=== PATIENT | female | born 1955 | race Caucasian/White ===

== ENCOUNTER → 2019-08-28 15:15 | Outpatient (BNVA) | payer BC, SELFPAY | PROVIDERS: Family Provider Family Medicine; PCP Nurse Practitioner Family; Visit Provider Family Medicine | DX: E78.5 Hyperlipidemia, unspecified (principal); I10 Essential (primary) hypertension; E78.2 Mixed hyperlipidemia; N95.9 Unspecified menopausal and perimenopausal disorder; F41.9 Anxiety disorder, unspecified | CPT/HCPCS: 80053; 80061; 84443; 85025 ==

== ENCOUNTER → 2019-09-04 11:30 | Outpatient (BNVA) | payer BC, SELFPAY | PROVIDERS: Family Provider Family Medicine; PCP Nurse Practitioner Family; Visit Provider Family Medicine | DX: E03.9 Hypothyroidism, unspecified (principal) | CPT/HCPCS: 84439; 84443 ==

== ENCOUNTER → 2020-07-23 11:07 | Outpatient (BNVA) | payer BC, SELFPAY | PROVIDERS: Family Provider Family Medicine; PCP Nurse Practitioner Family; Visit Provider Nurse Practitioner Family | DX: R30.0 Dysuria (principal); N30.00 Acute cystitis without hematuria | CPT/HCPCS: 81000; 81003; 87077; 87086; 87184 ==

== ENCOUNTER → 2020-08-17 10:16 | Outpatient (BNVA) | payer BC, SELFPAY | PROVIDERS: Family Provider Family Medicine; PCP Nurse Practitioner Family; Visit Provider Family Medicine | DX: F41.9 Anxiety disorder, unspecified (principal); I10 Essential (primary) hypertension; E78.2 Mixed hyperlipidemia; N95.9 Unspecified menopausal and perimenopausal disorder; F32.1 Major depressive disorder, single episode, moderate | CPT/HCPCS: 80053; 80061; 84443; 85025 ==

== ENCOUNTER → 2021-04-22 16:22 | Outpatient (BNVA) | payer BC, SELFPAY | PROVIDERS: Family Provider Family Medicine; PCP Family Medicine; Referring Provider Family Medicine; Visit Provider Family Medicine | DX: R60.9 Edema, unspecified (principal); I10 Essential (primary) hypertension; E78.5 Hyperlipidemia, unspecified; F41.9 Anxiety disorder, unspecified | CPT/HCPCS: 80053; 80061; 84443; 85025 ==

== ENCOUNTER 2021-04-27 11:09 | Outpatient (CLI) | payer BC, SELFPAY ==
--- NOTE | 2021-04-27 11:30 | MM_ITS ---
WS: [id number] BILATERAL SCREENING DIGITAL MAMMOGRAM WITH CAD HISTORY: Screening exam. COMPARISON: 02/02/2017 Bilateral CC and MLO views submitted. Computer aided detection analyzed. Breast composition: The breasts are heterogeneously dense, which may obscure small masses. No suspici ous masses, microcalcifications or architectural distortion. There are numerous asymmetries within ea ch breast and a prior biopsy clip in the LEFT breast near 6:00. 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 MM/[place] [id number] IMPRESSION: BI-RADS: 2-Benign FOLLOW UP: 1 Year Follow-up
== END 2021-04-27 11:10 | disposition home or self-care (01) ==
LOC: RADSHAW 11:12
PROVIDERS: PCP Family Medicine; Visit Provider Family Medicine
DX: Z12.31 Encounter for screening mammogram for malignant neoplasm of breast (principal)
CPT/HCPCS: 77067

== ENCOUNTER → 2021-08-03 09:50 | Outpatient (BNVA) | payer BC, SELFPAY | PROVIDERS: PCP Family Medicine; Visit Provider Family Medicine | DX: E78.5 Hyperlipidemia, unspecified (principal); R79.89 Other specified abnormal findings of blood chemistry | CPT/HCPCS: 80053; 80061; 84443; 85025 ==

== ENCOUNTER → 2021-10-25 08:50 | Outpatient (BNVA) | payer BC, SELFPAY | PROVIDERS: PCP Family Medicine; Visit Provider Family Medicine | DX: E78.5 Hyperlipidemia, unspecified (principal); I10 Essential (primary) hypertension; Z00.00 Encounter for general adult medical examination without abnormal findings | CPT/HCPCS: 80053; 80061; 84443; 85025 ==

== ENCOUNTER → 2021-12-22 18:02 | Outpatient (BNVA) | payer MEDICARE, BC, SELFPAY | PROVIDERS: PCP Family Medicine; Visit Provider Family Medicine | DX: S30.860A Insect bite (nonvenomous) of lower back and pelvis, initial encounter (principal); W57.XXXA Bitten or stung by nonvenomous insect and other nonvenomous arthropods, initial encounter | CPT/HCPCS: 86618; 86666; 86757 ==

== ENCOUNTER → 2022-03-17 09:47 | Outpatient (BNVA) | payer MEDICARE, BC, SELFPAY | PROVIDERS: PCP Family Medicine; Visit Provider Surgery | DX: Z12.11 Encounter for screening for malignant neoplasm of colon (principal) | CPT/HCPCS: 99024 ==

== ENCOUNTER → 2022-05-23 10:20 | Outpatient (BNVA) | payer MEDICARE, BC, SELFPAY | PROVIDERS: PCP Family Medicine; Visit Provider Family Medicine | DX: R35.0 Frequency of micturition (principal); I10 Essential (primary) hypertension; N95.9 Unspecified menopausal and perimenopausal disorder; N39.0 Urinary tract infection, site not specified; R60.9 Edema, unspecified; E78.5 Hyperlipidemia, unspecified; F41.9 Anxiety disorder, unspecified | CPT/HCPCS: 80053; 80061; 81000; 84443; 85025 ==

== ENCOUNTER 2022-06-01 06:02 | Day surgery (SDC) | payer MEDICARE, BC, SELFPAY ==
[2022-05-30 13:57] VITALS: BMI 25.7
--- NOTE | 2022-06-01 06:53 | ANES.PREANE2 ---
Pre-Anesthetic Assessment Height/Weight: Height 1.65 m Weight 70.307 kg Operation Date: 06/01/22 07:30 Proposed Procedures p Colonoscopy 18804,Z12.11(Not Applicable) - Abimael Avery DO Familial anesthetic complications: none Was Beta Janet taken within 24 hours: Yes Was Clonidine taken within 24 hours: N/A Social No alcohol and No tobacco Exam alert, oriented x 3, clear to auscultation bilaterally and regular rate & rhythm Airway Submandibular: within normal limits Cervical ROM: within normal limits Mallampati: Class II Dentition: full Pulmonary None reported CV/HEM Arrythmia and Hypertension Urinary Tract Infection (recent on end of antibiotics) Hepatic None reported GI Gastroesophageal Reflux Disease (occasional with certaian foods but controlled with tums) Metabolic Hyperlipidemia [facility] [place] None reported Neuropsych Anxiety and Headache Anesthetic Plan ASA status: 2 Anesthesia: MAC Medications/Allergies Home Medications Medication Instructions Recorded Confirmed Last Taken Type nitroglycerin 0.4 mg sublingual 0.4 mg sublingual Q5M PRN Chest 08/28/19 06/01/22 Unknown History tablet (Nitrostat) Pain peg 3350-electrolytes 236 240 ml PO Q10M #4,000 mL 03/17/22 06/01/22 05/31/22 Rx gram-22.74 gram-6.74 gram-5.86 gram solution (Golytely) alprazolam 1 mg tablet (Xanax) 1 mg PO TID PRN anxiety #270 tabs 05/23/22 06/01/22 05/31/22 Rx atenolol 50 mg tablet 50 mg PO DAILY #90 tabs 05/23/22 06/01/22 06/01/22 Rx bumetanide 2 mg tablet 2 mg PO BID #180 tabs 05/23/22 06/01/22 05/31/22 Rx estradiol 2 mg tablet (Estrace) 2 mg PO DAILY #90 tabs 05/23/22 06/01/22 05/31/22 Rx fenofibrate 160 mg tablet 160 mg PO DAILY #90 tabs 05/23/22 06/01/22 05/31/22 Rx potassium chloride 10 mEq 10 meq PO DAILY #90 caps 05/23/22 06/01/22 05/31/22 Rx capsule,extended release rosuvastatin 40 mg tablet (Crestor) 40 mg PO DAILY #90 tabs 05/23/22 06/01/22 05/31/22 Rx Allergies Allergy/AdvReac Type Severity Reaction Status Date / Time latex Allergy hives Verified 06/01/22 06:31 [facility] Anesthesia Medical History Anxiety Dyslipidemia Hypertension Social History Smoking and tobacco status: never smoked Alcohol intake: never Data Anesthesia Cardiac Studies: No Data to Display
[2022-06-01 06:55] VITALS: BP 129/77; PULSE 65; RESP 18; TEMP 36.3; O2SAT 95
[2022-06-01] MEDS: sodium chloride 0.9% 1,000 ML 30 ML IV (07:39)
--- NOTE | 2022-06-01 07:41 | PM.HP ---
Providers/Chief Complaint Primary Care Provider: Carlene Alex MD Chief Complaint: encounter for screening for malignant neoplasm History of Present Illness Lonny Baig is a 66 year old female here for a screening colonoscopy Medications/Allergies Home Medications Medication Instructions Recorded Confirmed Last Taken Type nitroglycerin 0.4 mg sublingual 0.4 mg sublingual Q5M PRN Chest 08/28/19 06/01/22 Unknown History tablet (Nitrostat) Pain peg 3350-electrolytes 236 240 ml PO Q10M #4,000 mL 03/17/22 06/01/22 05/31/22 Rx gram-22.74 gram-6.74 gram-5.86 gram solution (Golytely) alprazolam 1 mg tablet (Xanax) 1 mg PO TID PRN anxiety #270 tabs 05/23/22 06/01/22 05/31/22 Rx atenolol 50 mg tablet 50 mg PO DAILY #90 tabs 05/23/22 06/01/22 06/01/22 Rx bumetanide 2 mg tablet 2 mg PO BID #180 tabs 05/23/22 06/01/22 05/31/22 Rx estradiol 2 mg tablet (Estrace) 2 mg PO DAILY #90 tabs 05/23/22 06/01/22 05/31/22 Rx fenofibrate 160 mg tablet 160 mg PO DAILY #90 tabs 05/23/22 06/01/22 05/31/22 Rx potassium chloride 10 mEq 10 meq PO DAILY #90 caps 05/23/22 06/01/22 05/31/22 Rx capsule,extended release rosuvastatin 40 mg tablet (Crestor) 40 mg PO DAILY #90 tabs 05/23/22 06/01/22 05/31/22 Rx Allergies Allergy/AdvReac Type Severity Reaction Status Date / Time latex Allergy hives Verified 06/01/22 06:31 PFSH Acute PFSH: Medical History Anxiety Dyslipidemia Hypertension Social History Smoking and tobacco status: never smoked Alcohol intake: never Vitals/I&O/Wt Last Vital Signs Temp 97.3 F L 06/01/22 06:55 Pulse 65 06/01/22 06:55 Resp 18 06/01/22 06:55 BP 129/77 06/01/22 06:55 Pulse Ox 95 06/01/22 06:55 Weight last 48 hrs Weight 155 lb A&P Assessment and plan (1) Colon cancer screening: Plan Colonoscopy The risks and benefits of the procedure, including bleeding, infection, intestinal perforation requiring surgery, missed lesion, or explained to the patient. She is understanding of the risks and wishes to proceed. Attestations Medical Necessity Statement*: Home Coding Level of Care Code Acute Pricing Manager for Chg Fwd Diagnoses Colon cancer screening Z12.11
[2022-06-01 08:00] VITALS: BP 119/66; PULSE 65; RESP 16; TEMP 36.1; O2SAT 95
--- NOTE | 2022-06-01 08:05 | ANE.PACU2 ---
Inpatient post-anesthesia follow up: Airway intact: Yes Vital signs: Temperature 97.0 F Pulse Rate 65 Respiratory Rate 16 Blood Pressure 119/66 Pulse Oximetry 95 Oxygen Delivery Me thod Nasal Cannula Oxygen Flow Rate 2 Fraction of Inspir ed Oxygen Hydration adequate: Yes Nausea and vomiting: No Pain level: 1 Mental status: Baseline
[2022-06-01 08:10] VITALS: BP 118/71; PULSE 63; RESP 16; O2SAT 95
[2022-06-01] MEDS: ondansetron 2 mg/ML SDV 2 mL 4 MG IVP ×2 (08:13→08:28)
--- NOTE | 2022-06-01 08:34 | ANE.PACU2 ---
Inpatient post-anesthesia follow up: Airway intact: Yes Vital signs: Temperature 97.0 F Pulse Rate 63 Respiratory Rate 16 Blood Pressure 118/71 Pulse Oximetry 95 Oxygen Delivery Me thod Nasal Cannula Oxygen Flow Rate 2 Fraction of Inspir ed Oxygen Hydration adequate: Yes Nausea and vomiting: No Pain level: 1 Mental status: Baseline
== END 2022-06-01 08:57 | disposition home or self-care (01) ==
PROVIDERS: PCP Family Medicine; Visit Provider Surgery
PROC: 0DJD8ZZ Inspection of Lower Intestinal Tract, Via Natural or Artificial Opening Endoscopic (ICD-10-PCS; CPT 45378; principal; 2022-06-01 07:30)
DX: Z12.11 Encounter for screening for malignant neoplasm of colon (principal); F41.9 Anxiety disorder, unspecified; E78.5 Hyperlipidemia, unspecified; I10 Essential (primary) hypertension; K21.9 Gastro-esophageal reflux disease without esophagitis
CPT/HCPCS: 96374; G0121; J2405; J2704; J7030

== ENCOUNTER 2022-06-03 09:50 | Outpatient (CLI) | payer MEDICARE, BC, SELFPAY ==
--- NOTE | 2022-06-03 09:57 | MM_ITS ---
WS: [id number] BILATERAL SCREENING DIGITAL TOMOSYNTHESIS MAMMOGRAM WITH CAD HISTORY: SCREENING COMPARISON: 04/27/2021 and 02/20/2017 and 02/02/2017 Bilateral CC and MLO views with tomosynthesis and synthetic mammography submitted. Computer aided det ection analyzed. Breast composition: The breasts are heterogeneously dense, which may obscure small masses. No suspici ous masses, microcalcifications or architectural distortion. Bilateral breast asymmetries are stable. MM/[place] [id number] IMPRESSION: BI-RADS: 2-Benign FOLLOW UP: 1 Year Follow-up
== END 2022-06-03 09:51 | disposition home or self-care (01) ==
LOC: RAD 09:53
PROVIDERS: PCP Family Medicine; Visit Provider Family Medicine
DX: Z12.31 Encounter for screening mammogram for malignant neoplasm of breast (principal)
CPT/HCPCS: 77063; 77067

== ENCOUNTER → 2022-08-11 14:30 | Outpatient (BNVA) | payer MEDICARE, BC, SELFPAY | PROVIDERS: PCP Family Medicine; Visit Provider Family Medicine | DX: N39.0 Urinary tract infection, site not specified (principal); M25.50 Pain in unspecified joint | CPT/HCPCS: 81000; 81003; 84550; 85651; 86431 ==

== ENCOUNTER → 2023-01-04 11:27 | Outpatient (BNVA) | payer MEDICARE, BC, SELFPAY | PROVIDERS: PCP Family Medicine; Visit Provider Nurse Practitioner Family | DX: N39.0 Urinary tract infection, site not specified (principal); E78.5 Hyperlipidemia, unspecified | CPT/HCPCS: 80053; 80061; 84443 ==

== ENCOUNTER 2023-02-14 14:45 | Outpatient (CLI) | payer MEDICARE, BC, SELFPAY ==
--- NOTE | 2023-02-14 15:00 | US_ITS ---
WS: [id number] RIGHT UPPER QUADRANT ULTRASOUND HISTORY: R10.11 - Right upper quadrant pain COMPARISON: None available. Liver: 16.8 cm in length. Normal size liver and echogenicity. No bile duct dilatation or mass. Portal Vein: Normal hepatopetal flow with monophasic waveform. Gallbladder: Normally distended gallbladder with no stones or wall thickening. CBD: 0.3 cm Pancreas: Normal size and echogenicity. Right kidney: 11.9 cm in length. Normal size and echogenicity. No hydronephrosis or mass. Aorta and IVC: Unremarkable abdominal aorta and IVC. No ascites. US/US gall bladder [id number] IMPRESSION: Normal RIGHT upper quadrant ultrasound.
== END 2023-02-14 14:46 | disposition home or self-care (01) ==
PROVIDERS: PCP Family Medicine; Visit Provider Nurse Practitioner Family
DX: R10.11 Right upper quadrant pain (principal)
CPT/HCPCS: 76705

== ENCOUNTER → 2023-04-12 12:08 | Outpatient (BNVA) | payer MEDICARE, BC, SELFPAY | PROVIDERS: PCP Family Medicine; Visit Provider Family Medicine | DX: R35.0 Frequency of micturition (principal); N39.0 Urinary tract infection, site not specified | CPT/HCPCS: 81003; 87077; 87086; 87184 ==

== ENCOUNTER → 2023-11-07 11:36 | Outpatient (BNVA) | payer MEDICARE, BC, SELFPAY | PROVIDERS: PCP Family Medicine; Visit Provider Family Medicine | DX: R30.0 Dysuria (principal); L98.419 Non-pressure chronic ulcer of buttock with unspecified severity | CPT/HCPCS: 81000; 86695; 86696; 87077; 87086; 87184 ==

== ENCOUNTER → 2024-02-13 14:44 | Outpatient (BNVA) | payer MEDICARE, BC, SELFPAY | PROVIDERS: PCP Family Medicine; Visit Provider Family Medicine | DX: R30.0 Dysuria (principal) | CPT/HCPCS: 81003 ==

== ENCOUNTER → 2024-05-13 08:23 | Outpatient (BNVA) | payer MEDICARE, BC, SELFPAY | PROVIDERS: PCP Nurse Practitioner Family; Visit Provider Podiatrist Foot & Ankle Surgery | DX: M79.671 Pain in right foot (principal); Q66.221 Congenital metatarsus adductus, right foot; I10 Essential (primary) hypertension | CPT/HCPCS: 73630; 99204 ==

== ENCOUNTER 2024-05-24 05:35 | Day surgery (SDC) | payer MEDICARE, BC, SELFPAY ==
[2024-05-24] VITALS (8 sets, daily range): BP systolic 109–130; BP diastolic 49–79; PULSE 61–69; RESP 16–20; TEMP 36.4–37.1; O2SAT 94–97; BMI 25.7
[2024-05-24] MEDS: CELEcoxib 200 mg Capsule 400 MG PO (06:14)
[2024-05-24] MEDS: gabapentin 300 mg Capsule PO (06:14)
[2024-05-24] MEDS: sodium chloride 0.9% 1,000 ML 30 ML IV (06:15)
--- NOTE | 2024-05-24 06:44 | ANES.PREANE2 ---
Pre-Anesthetic Assessment Height/Weight: Height 1.65 m Weight 70.307 kg Temp Pulse Resp BP Pulse Ox O2 Del Method 97.6 F 64 18 122/79 96 Room Air 05/24/24 06:04 05/24/24 06:04 05/24/24 06:04 05/24/24 06:04 05/24/24 06:04 05/24/24 06:04 Preop Diagnosis: Right bunion Operation Date: 05/24/24 07:00 Proposed Procedures p Bunionectomy Dion(Right) - Dong Crespo DPM s Metatarsophalangeal Joint Fusion(Right) - Dong Crespo DPM Familial anesthetic complications: None Was Beta Janet taken within 24 hours: Yes Was Clonidine taken within 24 hours: N/A Last intake: Intake Last Liquid Date 05/23/24 Last Liquid Time 19:00 Last Solid Date 05/23/24 Last Solid Time 15:00 Social No alcohol and No tobacco Exam alert, oriented x 3, clear to auscultation bilaterally and regular rate & rhythm Airway Mallampati: Class II Dentition: other (crowns, bridges 2 on top 1 on bottom, fillings) CV/HEM Hypertension GI Gastroesophageal Reflux Disease Metabolic Hyperlipidemia Anesthetic Plan ASA status: 2 Anesthesia: MAC Risk of > 500 ml blood loss (7ml/kg in children): No Medications/Allergies Home Medications Medication Instructions Recorded Confirmed Last Taken Type nitroglycerin 0.4 mg sublingual 0.4 mg sublingual Q5M PRN Chest 08/28/19 05/24/24 Unknown History tablet (Nitrostat) Pain hydrocortisone 2.5 % topical cream 1 applic LA QID 10 days #30 grams 08/11/22 05/24/24 Unknown Rx with perineal applicator (Anusol-HC) potassium chloride 10 mEq See Rx Instructions .Route 11/07/23 05/24/24 05/23/24 Rx capsule,extended release .COMPLEX #90 caps atenolol 50 mg tablet 50 mg PO DAILY #90 tabs 04/30/24 05/24/24 05/23/24 Rx bumetanide 2 mg tablet 2 mg PO TID 90 days #270 tabs 04/30/24 05/24/24 05/23/24 Rx estradiol 2 mg tablet (Estrace) 2 mg PO DAILY #90 tabs 04/30/24 05/24/24 05/23/24 Rx fenofibrate 160 mg tablet See Rx Instructions .Route 04/30/24 05/24/24 05/23/24 Rx .COMPLEX #90 tabs methenamine hippurate 1 gram tablet See Rx Instructions .Route 04/30/24 05/24/24 05/23/24 Rx .COMPLEX #180 tabs pantoprazole 40 mg tablet,delayed 40 mg PO DAILY #90 tabs 04/30/24 05/24/24 Unknown Rx release (Protonix) rosuvastatin 40 mg tablet See Rx Instructions .Route 04/30/24 05/24/24 05/23/24 Rx .COMPLEX #90 tabs spironolactone 50 mg tablet 50 mg PO DAILY #90 tabs 04/30/24 05/24/24 05/23/24 Rx valacyclovir 1 gram tablet 1,000 mg PO DAILY #30 tabs 04/30/24 05/24/24 05/23/24 Rx (Valtrex) hydrocodone 10 mg-acetaminophen 1 tab PO Q6H PRN pain 7 days #28 05/24/24 Unknown Rx 325 mg tablet tabs Allergies Allergy/AdvReac Type Severity Reaction Status Date / Time latex Allergy hives Verified 05/24/24 06:13 Current Medications Generic Name Dose Route Start Last Admin Trade Name Freq PRN Reason Stop Dose Admin Sodium Chloride 1,000 mls @ 30 mls/hr 05/24/24 06:00 05/24/24 06:15 Sodium Chloride 0.9% IV 05/25/24 05:59 30 mls/hr .Q24H DEVON Administration PFSH Anesthesia Medical History Hypertension Anxiety Dyslipidemia Social History Smoking and tobacco/nicotine status: never used tobacco/nicotine Alcohol intake: never Substance/Drug Use: never Data Anesthesia Cardiac Studies: No Data to Display
--- NOTE | 2024-05-24 06:45 | W.PM.OPSUD ---
Surgery/Procedure H&P Update DATE OF PROCEDURE: May 24, 2024 DATE H&P PERFORMED: 05/13/24 H&P UPDATE INFORMATION: I have reviewed H&P completed within last 30 days, I have examined patient prior to procedure, No changes to prior documentation and H&P is in [facility] [facility]MR on date indicated PREOP DIAGNOSIS: Right bunion PLANNED PROCEDURE: Operation Date: 05/24/24 07:00 Proposed Procedures p Bunionectomy Dion(Right) - Dong Crespo DPM s Metatarsophalangeal Joint Fusion(Right) - Dong Crespo DPM
[2024-05-24] MEDS: ceFAZolin 2,000 mg SDV 2000 MG IVP (06:59)
[2024-05-24] MEDS: BUPivacaine 0.5% INJ 10 mL 20 ML INJECTION (07:24)
[2024-05-24] MEDS: BUPivacaine liposome 13.3 mg/mL SDV 20 mL 266 MG INJECTION (07:24)
--- NOTE | 2024-05-24 07:55 | PM.OP ---
Operative Report Date of procedure: May 24, 2024 Pre-op diagnosis: Right foot pain M79.671, Bunion, right foot M21.611 Post-op diagnosis: Right foot pain M79.671, Bunion, right foot M21.611 Procedure done: Modified Dion bunionectomy right foot. CPT code 18645 Implants: Ridott 3.0 mm headed short thread cannulated screw by 18 mm in length, 3-0 Vicryl, 4-0 Vicryl, 4 nylon Specimens removed/disposition: No specimens Pathology: No pathology Surgeon: Dong Crespo DPM Senior Solutions Engineer: Yuriy Anderson Estimated blood loss: 2 milliliters 26 minutes IV fluids: See intraoperative documentation Urine output: None Complications: No complications Brief History: Hallux noted to be an abducted position. Tibial sesamoid position: 4 degreesrrrrr. 1 ? 2 IM angle is 15?. True first and metatarsal angle 20 degrees. Hallux abductus angle is 35?. Metatarsal adductus angle is 5? Sieberg index of 1 mm Erosive changes at the medial aspect first metatarsal head with squaring off of the first metatarsal and mild subchondral sclerosis at the first metatarsal head all right foot. Painful right bunion unresponsive to conservative treatment with wide accommodative toebox, padding and spacing activity modifications, stretching, supportive insole and anti-inflammatories would like to discuss surgical options. Discussed joint sparing as well as joint destructive options. Would like to keep both open and use best judgment intraoperatively. Discussed Dion Carlos versus first MPJ fusion. I reviewed at length with the patient, the risks, potential complications, benefits, alternatives, expectations, and typical outcomes associated with the surgery. The risks and potential complications were explained in detail, including but not limited to infection, wound dehiscence or soft tissue complications, bleeding and hematoma, chronic edema, neuritis or nerve damage producing numbness or chronic pain, CRPS, failure to relieve pain or worsening pain, thick / painful / unsightly scar, limited motion / stiffness, malposition, delayed union, malunion, or nonunion, fracture, reaction to implants, anesthetic complications, venous thromboembolism, and deformity recurrence. I discussed the notion of no regrets with the patient as it pertains to complications and outcomes. The patient seemed to understand the nature of the proposed care and required convalescence. They asked appropriate questions, answered to their satisfaction. They are aware no guarantees can be made as to a satisfactory outcome and they understand there may be other possible unforeseen complications or outcomes not listed here that will be treated accordingly if they arise. There were no written or implied guarantees given to the patient. They gave informed consent to proceed. Procedure: Under mild sedation the patient was brought to the operating room and remained on the gurney in supine position. A timeout was performed. Anesthesia was then administered by the anesthesia service. Local anesthesia was injected by myself consisting of 20 cc of 0.25% Marcaine plain in a right male block fashion with an additional 20 cc of Exparel subcutaneously infiltrated proximal to the operative site. Well-padded pneumatic tourniquet applied to the right ankle. The right lower extremity was scrubbed, prepped and draped utilizing normal aseptic technique and the right foot and ankle were exanguinated with an Esmarch bandage, tourniquet was then inflated to 250 mmHg, this was well-padded ankle tourniquet right ankle. Attention was directed to the right first metatarsal phalangeal joint where dorsiflexion was appreciated to be approximately 45 degrees with osseous prominence and bunion deformity at the right foot. A incision was performed medial and parallel to the extensor hallucis longus tendon through skin with a #15 blade with dissection carried down through subcutaneous tissue to the layer periosteum utilizing accommodation of sharp and blunt technique. Care was taken to retract and preserve neurovascular and tendinous structures. All bleeders were ligated and cauterized as necessary. Capsular incision was performed in the head of the first metatarsal and base of the proximal phalanx were freed from their soft tissue and capsular attachments under direct visualization the first metatarsal was noted to be healthy without eburnation or cartilage loss, there was bossing dorsally with hypertrophy bony overgrowth at the head of the first metatarsal and to a lesser extent to the dorsal base of the proximal phalanx this was resected with sagittal saw and all rough edges smoothed with a hand rasp. The medial eminence was was prominent and overgrown was transected with a sagittal saw followed by placement of a K wire for an axis guide and a chevron osteotomy was carried out from medial to lateral with apex oriented distally and the head of the first metatarsal translated laterally and temporarily fixated with a Shannon wire. Utilizing standard AO technique a Ridott 3 mm headed screw was driven perpendicular to the osteotomy site with excellent bony apposition and compression noted and on the AP, oblique and lateral view the hardware did not violate joint surfaces. Temporary fixation was removed, medial remaining shelf was transected and all rough edges smoothed with a hand rasp, lateral release was performed and the first metatarsal plantar joint was reduced of his intermetatarsal angle and in proper alignment. Smooth range of motion of the first metatarsal phalangeal joint was appreciated intraoperatively with 60 degrees of dorsiflexion appreciated after modified bunionectomy was performed. The incision was irrigated with copious amounts of sterile skin solution and closed in a layered fashion. Capsule was reapproximated with 3-0 Vicryl, subcutaneous tissue with 4-0 Vicryl and skin with 4-0 nylon. Incision was dressed with Adaptic, sterile 4 x 4's, Kerlix and Fernie wrap followed by application of a cam boot to the right lower extremity. Tourniquet was then deflated and a prompt hyperemic response is noted to the distal digits of the right foot. Patient tolerated the procedure and anesthesia well and was transferred to the PACU with vital signs stable and vascular status intact. Following a period of postoperative monitoring to be discharged home without home care instructions and scheduled follow-up. Advised 81 mg aspirin to be taken once daily beginning the morning after surgery to help potentially reduce the risk of deep vein thrombosis for the next 4 to 6 weeks.
[2024-05-24] MEDS: HYDROcodone-acetaminophen 10-325 mg Tablet 1 TAB PO (08:21)
--- NOTE | 2024-05-24 08:50 | ANE.PACU2 ---
Inpatient post-anesthesia follow up: Airway intact: Yes Vital signs: Temperature 97.7 F Pulse Rate 61 Respiratory Rate 18 Blood Pressure 109/68 Pulse Oximetry 97 Oxygen Delivery Me thod Room Air Oxygen Flow Rate Fraction of Inspir ed Oxygen Hydration adequate: Yes Nausea and vomiting: No Pain level: 1 Mental status: Baseline
--- NOTE | 2024-05-24 14:22 | XR_ITS ---
WS: [id number] C-ARM RADIOGRAPHS RIGHT FOOT; 2 IMAGES HISTORY: OR PIC, BUNIECTOMY COMPARISON: None available. Intraoperative imaging during RIGHT foot bunionectomy. There is a screw overlying the first metatarsa l head. XR/XR foot RT 2V [id number] IMPRESSION: Intraoperative imaging during bunionectomy.
== END 2024-05-24 08:50 | disposition home or self-care (01) ==
PROVIDERS: PCP Nurse Practitioner Family; Visit Provider Podiatrist Foot & Ankle Surgery
PROC: (CPT 28296; principal; 2024-05-24 07:00)
PROC: (CPT 28750; 2024-05-24 07:00)
DX: M21.611 Bunion of right foot (principal); I10 Essential (primary) hypertension; K21.9 Gastro-esophageal reflux disease without esophagitis; E78.5 Hyperlipidemia, unspecified; F41.9 Anxiety disorder, unspecified
CPT/HCPCS: 28296; 73620; 76000; C1713; C9290; J0690; J2250; J2704; J3010; J3490; J7030

== ENCOUNTER → 2024-06-06 13:01 | Outpatient (BNVA) | payer MEDICARE, BC, SELFPAY | PROVIDERS: PCP Nurse Practitioner Family; Visit Provider Podiatrist Foot & Ankle Surgery | DX: Z98.890 Other specified postprocedural states (principal) | CPT/HCPCS: 73630; 99024 ==

== ENCOUNTER → 2024-07-03 13:15 | Outpatient (BNVA) | payer MEDICARE, BC, SELFPAY | PROVIDERS: PCP Nurse Practitioner Family; Visit Provider Podiatrist Foot & Ankle Surgery | DX: Z98.890 Other specified postprocedural states (principal) | CPT/HCPCS: 73630; 99024 ==

== ENCOUNTER → 2024-08-01 12:36 | Outpatient (BNVA) | payer MEDICARE, BC, SELFPAY | PROVIDERS: PCP Nurse Practitioner Family; Visit Provider Podiatrist Foot & Ankle Surgery | DX: Z98.890 Other specified postprocedural states (principal) | CPT/HCPCS: 73630; 99024 ==

== ENCOUNTER → 2024-11-06 10:31 | Outpatient (BNVA) | payer MEDICARE, BC, SELFPAY | PROVIDERS: PCP Nurse Practitioner Family; Visit Provider Nurse Practitioner Family | DX: R30.0 Dysuria (principal); E78.5 Hyperlipidemia, unspecified; I10 Essential (primary) hypertension | CPT/HCPCS: 80053; 81000; 85025; 87086 ==

== ENCOUNTER → 2024-11-12 10:01 | Outpatient (BNVA) | payer MEDICARE, BC, SELFPAY | PROVIDERS: PCP Nurse Practitioner Family; Visit Provider Nurse Practitioner Family | DX: N39.0 Urinary tract infection, site not specified (principal) | CPT/HCPCS: 81000 ==

== ENCOUNTER → 2024-11-19 09:28 | Outpatient (BNVA) | payer MEDICARE, BC, SELFPAY | PROVIDERS: PCP Nurse Practitioner Family; Visit Provider Nurse Practitioner Family | DX: R30.0 Dysuria (principal) | CPT/HCPCS: 81000 ==

== ENCOUNTER → 2024-12-04 12:20 | Outpatient (BNVA) | payer MEDICARE, BC, SELFPAY | PROVIDERS: PCP Nurse Practitioner Family; Visit Provider Nurse Practitioner Family | DX: N39.0 Urinary tract infection, site not specified (principal) | CPT/HCPCS: 87077; 87086; 87184 ==

== ENCOUNTER → 2024-12-12 12:40 | Outpatient (BNVA) | payer MEDICARE, BC, SELFPAY | PROVIDERS: PCP Nurse Practitioner Family; Visit Provider Internal Medicine Cardiovascular Disease | DX: R60.0 Localized edema (principal); I87.2 Venous insufficiency (chronic) (peripheral); R07.9 Chest pain, unspecified; R06.02 Shortness of breath; I83.93 Asymptomatic varicose veins of bilateral lower extremities | CPT/HCPCS: 93005; 99204 ==

== ENCOUNTER → 2024-12-17 10:20 | Outpatient (BNVA) | payer MEDICARE, BC, SELFPAY | PROVIDERS: PCP Nurse Practitioner Family; Visit Provider Podiatrist Foot & Ankle Surgery | DX: Z98.890 Other specified postprocedural states (principal); M79.671 Pain in right foot; M76.821 Posterior tibial tendinitis, right leg | CPT/HCPCS: 73630; 99214 ==

== ENCOUNTER 2025-01-22 08:07 | Outpatient (CLI) | payer MEDICARE, BC, SELFPAY ==
--- NOTE | 2025-01-22 09:30 | USR_ITS ---
PROCEDURE INFORMATION: Exam: US Duplex Lower Extremity Veins, Bilateral Exam date and time: 01/22/2025 8:12 AM Age: 69 years old Clinical indication: Varicose veins of lower extremities; Additional info: Varicous veins TECHNIQUE: Imaging protocol: Real-time duplex ultrasound of the bilateral extremities with 2-D pena scale, color Doppler flow and spectral waveform analysis including responses to compression and other maneuvers (when performed) with image documentation. Complete exam focused on the lower extremity veins. COMPARISON: CR XR foot RT min 3V* [id number] 12/17/2024 10:27 AM FINDINGS: Right deep veins: Unremarkable. The common femoral, femoral and popliteal veins are patent without thrombus. Normal Doppler waveforms. Normal compressibility and/or augmentation response. Left deep veins: Unremarkable. The common femoral, femoral and popliteal veins are patent without thrombus. Normal Doppler waveforms. Normal compressibility and/or augmentation response. Superficial veins: Greater saphenous veins at the saphenofemoral junctions are patent bilaterally without thrombus. Right GSV prox 4 mm; mid 4 mm; dist 3 mm, below knee 3 mm. Right SSV prox 3 mm; mid 3 cmm. Left GSV prox 5 mm; mid 4 mm; dist 3 mm, below knee 2 mm. Left SSV prox 2 mm; mid 2 cmm. Soft tissues: Unremarkable. Reflux time: Right CFV 0.79 seconds Right Sapheno-femoral junction 0.63 seconds Left CFV 0.82 seconds US/CV juan ramon dup insustefani [facility] [id number] IMPRESSION: No evidence of deep vein thrombosis. Reflux is seen in bilateral common femoral vein and right saphenofemoral junction.
== END 2025-01-22 08:08 | disposition home or self-care (01) ==
LOC: RAD 08:08
PROVIDERS: PCP Nurse Practitioner Family; Visit Provider Internal Medicine Cardiovascular Disease
DX: I83.93 Asymptomatic varicose veins of bilateral lower extremities (principal); R06.02 Shortness of breath
CPT/HCPCS: 93306; 93970

== ENCOUNTER → 2025-02-10 13:16 | Outpatient (BNVA) | payer MEDICARE, BC, SELFPAY | PROVIDERS: PCP Nurse Practitioner Family; Visit Provider Nurse Practitioner Family | DX: N39.0 Urinary tract infection, site not specified (principal) | CPT/HCPCS: 81000; 87077; 87086; 87184 ==